=== PATIENT | female | born 1990 | race Caucasian/White ===

== ENCOUNTER 2018-04-11 11:45 | Outpatient (CLI) | payer SELFPAY ==
[2018-04-11 12:16] LABS: Abs Immature Grans 0.02 k/cumm (0.0-0.09); Absolute Basophil Count 0.01 k/cumm (0.0-0.2); Absolute Eosinophil Count 0.04 k/cumm (0.0-0.7); Absolute Lymphocyte Count 1.19 k/cumm (1.2-3.4); Absolute Monocyte Count 0.34 k/cumm (0.11-0.7); Basophils % 0.1; Eosinophils % 0.4; HCT 31.3 % (36.0-46.0); Immature Grans % 0.2; Lymphocytes % 12.8; Mean Corp. HGB Concentration 35.1 g/dL (32.0-36.0); Mean Corpuscular Hemoglobin 30.6 pg (27.0-33.0); Mean Corpuscular Volume 87.2 fL (80-95); Monocytes % 3.7; Neutrophils % 82.8; Platelet Count 274 x1000/uL (130-400); RBC 3.59 m/cumm (4.00-5.20); RBC Distribution Width 12.9 % (11.7-14.6)
[2018-04-11 14:27] LABS: *AMPHETAMINES SCREEN URINE Negative (Negative); *BARBITURATES SCREEN URINE Negative (Negative); *BENZODIAZEPINES SCREEN URINE Negative (Negative); Cannabinoids THC Negative (Negative); Cocaine Screen,Urine Negative (Negative); METHADONE URINE SCREEN Negative (Negative); OPIATES URINE SCREEN Negative (Negative)
[2018-04-11 14:28] LABS: Tricyclic Antidepressants Negative (Negative)
[2018-04-12 15:14] LABS: Syphilis Serology (RPR) Negative (Negative)
[2018-04-12 15:23] LABS: HIV-1/2 Ag & Ab Screen Negative (NEGAT)
[2018-04-12 15:48] LABS: Hepatitis B Surface Ag Negative (NEGAT)
[2018-04-13 11:17] LABS: Varicella IgG Antibody Positive
[2018-04-13 11:24] LABS: Rubella IgG Ab (UVM) Negative
[2018-04-13 12:23] LABS: Hepatitis C Ab w Rflx HCV PCR Negative (NEGAT)
[2018-04-14 11:57] LABS: Buprenorphine Negative; Norbuprenorphine Negative
== END 2018-04-11 12:05 ==
PROVIDERS: Visit Provider Advanced Practice Midwife
DX: Z34.91 Encounter for supervision of normal pregnancy, unspecified, first trimester (principal); Z11.4 Encounter for screening for human immunodeficiency virus [HIV]; Z11.59 Encounter for screening for other viral diseases; Z01.84 Encounter for antibody response examination; Z11.3 Encounter for screening for infections with a predominantly sexual mode of transmission
CPT/HCPCS: 36415; 80055; 80307; 86787; 86803; 86850; 86900; 86901; 87340; 87389; 86592; 86762; 87086

== ENCOUNTER 2018-05-04 01:13 | Outpatient (CLI) | payer OTHER, SELFPAY ==
--- NOTE | 2018-05-04 14:33 | DI.US_ITS ---
SYMPTOMS/DIAGNOSIS: SURVEY OB ULTRASOUND: OB ultrasound was performed utilizing second trimester protocol. The biometry is consistent with a gestational age of 19 weeks and EDC of 09/28/18. The placenta is anterior with no evidence of placenta previa. There is visually a normal quantity of amniotic fluid. anomaly screen is within normal limits as per the attached checklist. Many abnormalities cannot be diagnosed. A normal exam does not exclude a congenital anomaly. Radiology No. [id number] LMP: 12/23/17 Exam Date: 05/04/18 [facility] wks days on EDC ([facility]) 09/29/18 Confirmed: HISTORY: survey PREDICTED GESTATIONAL AGE NUMBER 18+6 weeks with a range of 17+6 weeks to 19+6 weeks. 1 Determined by___1STUS___LMP___HISTORY Info. pertaining to fetus # PLACENTA PRESENTATION Grade 0-I Cephalic___ Anterior X Posterior___ Breech X Right Left Transverse(head right___ Fundal___Low-lying___Previa___ Transverse(head left___ Varying BIOMETRY AMNIOTIC FLUID BPD: 44 mm 19+2 weeks Normal HC: 166 mm 19+2 weeks AC: 133 mm 18+6 weeks FL: 28 mm 18+3 weeks AMNIOTIC FLUID INDEX >26 WK CRL: mm weeks Cisterna Magna: 4 mm CI: 78 RUQ: LUQ Cerebellum: 1.8 cm EFW: 254 grams Percentile RLQ: LLQ Total: cms Composite AGE= 19 wks EDC by US 09/28/18 BIOPHYSICAL PROFILE ANATOMY IDENTIFIED SCORE 0/2 Heart: 4-Chamber X Rate: 157 BPM LVOT: X RVOT: X Amniotic Fluid(>2cms)____ Stomach: X Kidneys: X Respirations (>30 secs) Bladder: X Post. Fossa: X Body Flex/Extension 3 vessel cord: X Ventricles: X cord insertion: X Lips: X Extremity Flex/Extension spinal morphology: X Nose: X Total Score= Palate: X NS=not seen
== END 2018-05-04 01:33 ==
PROVIDERS: Visit Provider Advanced Practice Midwife
DX: Z34.92 Encounter for supervision of normal pregnancy, unspecified, second trimester (principal)
CPT/HCPCS: 76805

== ENCOUNTER 2018-07-10 08:22 | Outpatient (CLI) | payer SELFPAY ==
[2018-07-10 09:01] LABS: HCT 27.4 % (36.0-46.0); Mean Corp. HGB Concentration 32.8 g/dL (32.0-36.0); Mean Corpuscular Hemoglobin 29.9 pg (27.0-33.0); Mean Platelet Volume 10.4 fL (8.0-11.0); Platelet Count 253 x1000/uL (130-400); RBC 3.01 m/cumm (4.00-5.20); RBC Distribution Width 13.1 % (11.7-14.6); White Blood Cell Count 9.72 k/cumm (4.4-10.8)
[2018-07-10 09:07] LABS: Glucose,1 Hr (Glucola) 148 mg/dL (80-140)
== END 2018-07-10 08:42 ==
PROVIDERS: Visit Provider Advanced Practice Midwife
DX: Z34.93 Encounter for supervision of normal pregnancy, unspecified, third trimester (principal)
CPT/HCPCS: 36415; 82950; 85027

== ENCOUNTER 2018-08-04 07:24 | Outpatient (CLI) | payer SELFPAY ==
[2018-08-04 09:57] LABS: Glucose 1 Hour 152 mg/dL
[2018-08-04 12:08] LABS: Glucose 3 Hour 120 mg/dL
== END 2018-08-04 07:44 ==
PROVIDERS: Visit Provider Advanced Practice Midwife
DX: R73.09 Other abnormal glucose (principal); Z34.93 Encounter for supervision of normal pregnancy, unspecified, third trimester
CPT/HCPCS: 36415; 82951

== ENCOUNTER 2018-08-31 12:43 | Outpatient (REF) | payer SELFPAY ==
[2018-08-31 14:17] LABS: *AMPHETAMINES SCREEN URINE Negative (Negative); *BARBITURATES SCREEN URINE Negative (Negative); *BENZODIAZEPINES SCREEN URINE Negative (Negative); Cannabinoids THC Negative (Negative); Cocaine Screen,Urine Negative (Negative); METHADONE URINE SCREEN Negative (Negative); OPIATES URINE SCREEN Negative (Negative)
[2018-08-31 14:18] LABS: Tricyclic Antidepressants Negative (Negative)
[2018-09-05 14:45] LABS: Buprenorphine Negative; Norbuprenorphine Negative
== END 2018-08-31 13:03 ==
LOC: LBN 12:43
PROVIDERS: Visit Provider Advanced Practice Midwife
DX: Z34.93 Encounter for supervision of normal pregnancy, unspecified, third trimester (principal); Z36.85 Encounter for antenatal screening for Streptococcus B
CPT/HCPCS: 80307; 87081

== ENCOUNTER 2018-09-20 06:25 | Inpatient (IN) | payer SELFPAY ==
[2018-09-20 07:16] LABS: HCT 29.3 % (36.0-46.0); HGB 9.4 g/dL (12.0-15.5); Mean Corp. HGB Concentration 32.1 g/dL (32.0-36.0); Mean Corpuscular Volume 87.2 fL (80-95); Mean Platelet Volume 11.7 fL (8.0-11.0); Platelet Count 288 x1000/uL (130-400); RBC 3.36 m/cumm (4.00-5.20); RBC Distribution Width 16.2 % (11.7-14.6); White Blood Cell Count 11.22 k/cumm (4.4-10.8)
[2018-09-20] MEDS: Oxytocin 10 UNITS/ML VIAL IM (07:45)
[2018-09-20] MEDS: Methylergonovine 0.2 MG/ML VIAL IM (08:06)
[2018-09-20] MEDS: Ibuprofen 600 MG TAB PO ×3 (09:05→22:05)
[2018-09-20] MEDS: Acetaminophen 325 MG TAB 650 MG PO ×3 (09:06→22:05)
[2018-09-20] MEDS: IRON SUCROSE COMPLEX 200 MG in Normal Saline 100 ML 110 MG IVPB (13:15)
[2018-09-20] MEDS: Lactated Ringers 1,000 ML 30 ML IV (13:22)
[2018-09-20] MEDS: Normal Saline Flush 10 ML SYR IVP (22:06)
[2018-09-21 07:17] LABS: HCT 23.8 % (36.0-46.0); HGB 7.7 g/dL (12.0-15.5); Mean Corp. HGB Concentration 32.4 g/dL (32.0-36.0); Mean Corpuscular Hemoglobin 28.7 pg (27.0-33.0); Mean Corpuscular Volume 88.8 fL (80-95); Mean Platelet Volume 11.8 fL (8.0-11.0); Platelet Count 257 x1000/uL (130-400); RBC 2.68 m/cumm (4.00-5.20); RBC Distribution Width 16.1 % (11.7-14.6); White Blood Cell Count 9.14 k/cumm (4.4-10.8)
[2018-09-21] MEDS: Acetaminophen 325 MG TAB 650 MG PO (09:31)
[2018-09-21] MEDS: Ibuprofen 600 MG TAB PO (09:31)
== END 2018-09-21 14:45 | disposition home or self-care (01) | DRG 806 ==
PROVIDERS: Admitting Provider Advanced Practice Midwife; Visit Provider Advanced Practice Midwife
DX: O99.02 Anemia complicating childbirth (principal); O72.1 Other immediate postpartum hemorrhage; Z37.0 Single live birth; D62 Acute posthemorrhagic anemia; Z3A.38 38 weeks gestation of pregnancy; D50.9 Iron deficiency anemia, unspecified
CPT/HCPCS: 36415; 85027; 86850; 86900; 86901; J1756; J2210; J2590

== ENCOUNTER 2018-09-26 01:47 | Outpatient (RCR) | payer SELFPAY ==
[2018-09-26] MEDS: Normal Saline Flush 10 ML SYR IVP (11:30)
[2018-09-26] MEDS: IRON SUCROSE COMPLEX 200 MG in Normal Saline 100 ML 110 MG IVPB (11:30)
== END 2018-10-25 23:59 | disposition home or self-care (01) ==
LOC: INF 01:47
PROVIDERS: Visit Provider Advanced Practice Midwife
DX: O99.02 Anemia complicating childbirth (principal); D50.9 Iron deficiency anemia, unspecified
CPT/HCPCS: 96365; J1756

== ENCOUNTER 2021-05-04 03:49 | Outpatient (CLI) | payer SELFPAY | END 2021-05-04 03:50 | disposition home or self-care (01) | LOC: LBO 03:49 | PROVIDERS: Visit Provider Advanced Practice Midwife ==